=== PATIENT | female | born 1975 | race African-American/Black ===

== ENCOUNTER 2016-10-26 12:34 | Emergency (ER) | payer OTHER ==
[~2016-10-26] VITALS: Ht 167.6 cm; Wt 77.1 kg
[2016-10-26 12:34] VITALS: BP 146/91
[~2016-10-26 12:34] MED LIST: BENADRYL ALLERG25 MG PO; BENADRYL25 MG; BLOOD PRESSURE PILL; CLONIDINE HCL0.2 M2 PO; CLONIDINE0.1 PO; COLACE100 MG; COMPAZINE10 MG PO; FERROUS GLUCON325 M4; IBUPROFEN 200200 M1; IBUPROFEN 200200 M1 PO; IBUPROFEN 400400 M1 PO; IBUPROFEN 400400 M2 PO; IBUPROFEN 600600 M1 PO; NAPROSYN500 MG PO; NOHOMEMEDICATIONS; NORCO 5-325 TA1 EACH PO; NORFLEX100 MG PO; PRENATAL; PROVENTIL HFA6.7 G1 INH; TORADOL 10 MG T10 MG PO; ULTRAM 50MG TAB50 MG PO; VALIUM5 MG PO; ZOFRAN ODT4 MG PO
[2016-10-26] MEDS ORDERED: MOBIC15 MG PO (13:25)
== END 2016-10-26 14:19 | disposition home or self-care (01) ==
LOC: ER 12:34
DX: S60.221A Contusion of right hand, initial encounter (principal); I10 Essential (primary) hypertension; Z88.1 Allergy status to other antibiotic agents; F17.210 Nicotine dependence, cigarettes, uncomplicated; F10.99 Alcohol use, unspecified with unspecified alcohol-induced disorder; W22.8XXA Striking against or struck by other objects, initial encounter; Y93.89 Activity, other specified; Y92.89 Other specified places as the place of occurrence of the external cause; Y99.8 Other external cause status

== ENCOUNTER 2017-03-08 18:17 | Emergency (ER) | payer OTHER ==
[~2017-03-08] VITALS: Ht 172.7 cm; Wt 68.0 kg
[~2017-03-08 18:17] MED LIST changes: +MOBIC15 MG PO
[2017-03-08 18:18] VITALS: BP 145/98
== END 2017-03-08 18:30 | disposition left against medical advice (07) ==
LOC: ER 18:17
DX: Z53.21 Procedure and treatment not carried out due to patient leaving prior to being seen by health care provider (principal)

== ENCOUNTER 2017-03-21 10:11 | Emergency (ER) | payer OTHER ==
[~2017-03-21] VITALS: Ht 162.6 cm; Wt 72.6 kg
[2017-03-21 10:14] VITALS: BP 127/91
[2017-03-21] MEDS ORDERED: PREDNISONE 20 M20 MG PO (10:58)
== END 2017-03-21 11:09 | disposition home or self-care (01) ==
LOC: ER 10:11
DX: T63.481A Toxic effect of venom of other arthropod, accidental (unintentional), initial encounter (principal); I10 Essential (primary) hypertension; G43.909 Migraine, unspecified, not intractable, without status migrainosus; F17.210 Nicotine dependence, cigarettes, uncomplicated; F10.99 Alcohol use, unspecified with unspecified alcohol-induced disorder; Z88.1 Allergy status to other antibiotic agents; Y92.89 Other specified places as the place of occurrence of the external cause

== ENCOUNTER 2017-03-26 15:04 | Emergency (ER) | payer OTHER ==
[~2017-03-26] VITALS: Ht 162.6 cm; Wt 72.6 kg
[~2017-03-26 15:04] MED LIST changes: +PREDNISONE 20 M20 MG PO
[2017-03-26 15:07] VITALS: BP 133/93
== END 2017-03-26 15:53 | disposition home or self-care (01) ==
LOC: ER 15:04
DX: S60.862A Insect bite (nonvenomous) of left wrist, initial encounter (principal); S70.362A Insect bite (nonvenomous), left thigh, initial encounter; I10 Essential (primary) hypertension; G43.909 Migraine, unspecified, not intractable, without status migrainosus; F17.210 Nicotine dependence, cigarettes, uncomplicated; F10.99 Alcohol use, unspecified with unspecified alcohol-induced disorder; Z88.1 Allergy status to other antibiotic agents; W57.XXXA Bitten or stung by nonvenomous insect and other nonvenomous arthropods, initial encounter; Y93.89 Activity, other specified; Y92.89 Other specified places as the place of occurrence of the external cause; Y99.8 Other external cause status

== ENCOUNTER 2017-04-11 09:34 | Emergency (ER) | payer OTHER ==
[~2017-04-11] VITALS: Ht 162.6 cm; Wt 73.5 kg
[2017-04-11] MEDS ORDERED: NORCO 5-325 TA1 EACH PO (10:04)
[2017-04-11 10:32] VITALS: BP 132/68
== END 2017-04-11 10:33 | disposition home or self-care (01) ==
LOC: ER 09:34
DX: S90.32XA Contusion of left foot, initial encounter (principal); I10 Essential (primary) hypertension; G43.909 Migraine, unspecified, not intractable, without status migrainosus; F17.210 Nicotine dependence, cigarettes, uncomplicated; F10.99 Alcohol use, unspecified with unspecified alcohol-induced disorder; Z88.1 Allergy status to other antibiotic agents; W22.8XXA Striking against or struck by other objects, initial encounter; Y93.89 Activity, other specified; Y92.89 Other specified places as the place of occurrence of the external cause; Y99.8 Other external cause status

== ENCOUNTER 2017-05-01 14:40 | Emergency (ER) | payer OTHER ==
[~2017-05-01] VITALS: Ht 162.6 cm; Wt 72.6 kg
--- NOTE | ~2017-05-01 | EKG ---
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 : 1975 Requested By: Marcos Nagel Order Number: [id number] MD: Colton Lombardi Measurements Intervals [place] Rate: 74 P: 77 CA: 209 QRS: 54 QRSD: 103 T: 40 QT: 421 QTc: 467 Interpretive Statements Sinus rhythm Borderline prolonged CA interval Compared to ECG 05/12/2016 17:40:51 No significant changes Electronically Signed On 05-02-2017 6:51:45 CDT by Colton Lombardi [email or web address] <ELECTRONICALLY SIGNED> By: Colton Lombardi MD 05/02/17 0651 1449 1449 Colton Lombardi MD /[facility]
[2017-05-01 14:44] VITALS: BP 146/95
[2017-05-01 16:01] LABS: ABSOLUTE NEUTROPHILS 2.4 thou/uL (1.4-8.2); BASOPHILS 0.3 % (0.0-2.0); EOSINOPHILS 1.5 % (0.0-3.0); HEMATOCRIT 39.7 % (37.0-47.0); HEMOGLOBIN 13.4 gm/dL (12.0-15.0); LYMPHOCYTES 45.9 % (24.0-44.0); MCH 32.2 pg (26.0-34.0); MCHC 33.7 g/dL (28.0-37.0); MCV 95.4 fL (80.0-100.0); MONOCYTES 6.7 % (1.0-8.0); PLATELET COUNT 163 thou/uL (150-400); POLYS 45.6 % (36.0-66.0); RBC 4.16 mil/uL (4.20-5.00); WBC 5.3 thou/uL (4.0-11.0)
[2017-05-01 16:02] LABS: MANUAL DIFF NO
[2017-05-01 16:12] LABS: ANION GAP 11 mmol/L (7-16); BUN 14 mg/dL (7-18); CALCIUM 8.3 mg/dL (8.5-10.1); CHLORIDE 108 mmol/L (98-107); CO2 23 mmol/L (21-32); CREATININE 0.8 mg/dL (0.6-1.0); GLUCOSE 82 mg/dL (74-106); POTASSIUM 3.4 mmol/L (3.5-5.1); SODIUM 142 mmol/L (136-145)
[2017-05-01 16:21] LABS: TROPONIN-I < 0.04 ng/mL (<0.06)
== END 2017-05-01 16:02 | disposition home or self-care (01) ==
LOC: ER 14:40
PROVIDERS: Emergency Medicine
DX: F41.9 Anxiety disorder, unspecified (principal); I10 Essential (primary) hypertension; G43.909 Migraine, unspecified, not intractable, without status migrainosus; F17.210 Nicotine dependence, cigarettes, uncomplicated; F10.99 Alcohol use, unspecified with unspecified alcohol-induced disorder; Z88.1 Allergy status to other antibiotic agents

== ENCOUNTER 2017-06-30 14:57 | Emergency (ER) | payer OTHER ==
[~2017-06-30] VITALS: Ht 162.6 cm; Wt 75.8 kg
[~2017-06-30 14:57] MED LIST changes: +KEFLEX500 M1 PO
[2017-06-30 14:58] VITALS: BP 135/99
[2017-06-30] MEDS ORDERED: TYLENOL EXTRA500 MG PO (15:10)
[2017-06-30] MEDS ORDERED: IBUPROFEN 800800 M1 PO (15:12)
== END 2017-06-30 15:35 | disposition home or self-care (01) ==
LOC: ER 14:57
DX: S90.32XA Contusion of left foot, initial encounter (principal); I10 Essential (primary) hypertension; G43.909 Migraine, unspecified, not intractable, without status migrainosus; F17.210 Nicotine dependence, cigarettes, uncomplicated; Z88.1 Allergy status to other antibiotic agents; W20.8XXA Other cause of strike by thrown, projected or falling object, initial encounter; Y93.89 Activity, other specified; Y92.89 Other specified places as the place of occurrence of the external cause; Y99.0 Civilian activity done for income or pay

== ENCOUNTER 2017-09-10 01:34 | Emergency (ER) | payer OTHER ==
[~2017-09-10] VITALS: Ht 162.6 cm; Wt 71.7 kg
--- NOTE | ~2017-09-10 | EKG ---
[address] [place] [address] ELECTROCARDIOGRAM REPORT Name: JULIO GARCIA 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: CORINE : 1975 Requested By: Gerson Woodard Order Number: [id number] MD: Guille Paige Measurements Intervals [place] Rate: 89 P: 64 LA: 207 QRS: 26 QRSD: 91 T: 30 QT: 386 QTc: 470 Interpretive Statements Sinus rhythm Borderline prolonged [place] interval Compared to ECG 05/01/2017 14:49:03 No significant changes Electronically Signed On 09-10-2017 8:13:47 PATTERN STAMPER by Guille Paige [email or web address] <ELECTRONICALLY SIGNED> By: Guille Paige MD, [facility] 09/10/17 0813 0140 0140 Guille Paige MD, FACC /EPI
[~2017-09-10 01:34] MED LIST changes: +IBUPROFEN 800800 M1 PO; +TYLENOL EXTRA500 MG PO
[2017-09-10] MEDS ORDERED: NORCO 5-325 TA1 EACH PO (01:53)
== END 2017-09-10 03:27 | disposition home or self-care (01) ==
LOC: ER 01:34
DX: R07.89 Other chest pain (principal); R51 Headache; I10 Essential (primary) hypertension; G43.909 Migraine, unspecified, not intractable, without status migrainosus; F17.210 Nicotine dependence, cigarettes, uncomplicated; F10.99 Alcohol use, unspecified with unspecified alcohol-induced disorder; Z88.1 Allergy status to other antibiotic agents

== ENCOUNTER 2017-10-23 15:26 | Emergency (ER) | payer OTHER ==
[~2017-10-23] VITALS: Ht 162.6 cm; Wt 68.5 kg
[2017-10-23 15:35] VITALS: BP 133/95
[2017-10-23] MEDS ORDERED: HYDROCODONE-AP1 EAC6 PO (16:58)
== END 2017-10-23 17:08 | disposition home or self-care (01) ==
LOC: ER 15:26
DX: M77.52 Other enthesopathy of left foot and ankle (principal); I10 Essential (primary) hypertension; G43.909 Migraine, unspecified, not intractable, without status migrainosus; F17.210 Nicotine dependence, cigarettes, uncomplicated; Z88.1 Allergy status to other antibiotic agents

== ENCOUNTER 2017-12-15 10:39 | Emergency (ER) | payer OTHER ==
[~2017-12-15] VITALS: Ht 165.1 cm; Wt 69.4 kg
[~2017-12-15 10:39] MED LIST changes: +HYDROCODONE-AP1 EAC6 PO
[2017-12-15 11:41] VITALS: BP 122/95
[2017-12-15] MEDS ORDERED: MOBIC15 MG PO (11:53)
== END 2017-12-15 12:15 | disposition home or self-care (01) ==
LOC: ER 10:39
DX: M77.52 Other enthesopathy of left foot and ankle (principal); I10 Essential (primary) hypertension; G43.909 Migraine, unspecified, not intractable, without status migrainosus; Z88.1 Allergy status to other antibiotic agents

== ENCOUNTER 2018-01-10 22:15 | Emergency (ER) | payer OTHER ==
[~2018-01-10] VITALS: Ht 162.6 cm; Wt 72.6 kg
[2018-01-10 22:22] VITALS: BP 133/96
[2018-01-10] MEDS ORDERED: TRAMADOL 50 MG50 MG PO (22:57)
[2018-01-10] MEDS ORDERED: NAPROSYN500 MG PO (22:57)
== END 2018-01-10 23:40 | disposition home or self-care (01) ==
LOC: ER 22:15
DX: S83.401A Sprain of unspecified collateral ligament of right knee, initial encounter (principal); I10 Essential (primary) hypertension; G43.909 Migraine, unspecified, not intractable, without status migrainosus; F17.210 Nicotine dependence, cigarettes, uncomplicated; Z88.1 Allergy status to other antibiotic agents; X58.XXXA Exposure to other specified factors, initial encounter; Y93.89 Activity, other specified; Y92.89 Other specified places as the place of occurrence of the external cause; Y99.8 Other external cause status

== ENCOUNTER 2018-06-04 04:36 | Emergency (ER) | payer OTHER ==
[~2018-06-04] VITALS: Ht 162.6 cm; Wt 76.2 kg
--- NOTE | ~2018-06-04 | EKG ---
[place] [address] [facility] [place] [address] ELECTROCARDIOGRAM REPORT Name: JULIO GARCIA [facility] [id number] Admission: 06/04/18 Attend Phys: Discharge: 06/04/18 Date of : 73 Report #: [id number] THIS REPORT FOR: //name// [facility] ED Test Date: 2018-06-04 Test Time: 04:45:07 Pat Name: JULIO GARCIA Department: Room: Gender: F Collision Repairer: SHADIA : 1975 Requested By: Jaya Trotter Order Number: [id number] MD: Colton Lombardi Measurements Intervals [place] Rate: 87 P: 60 ID: 246 QRS: 65 QRSD: 96 T: 38 QT: 401 QTc: 483 Interpretive Statements Sinus rhythm Ventricular premature complex Prolonged ID interval ST elev, probable normal early repol pattern, no ischemia Compared to ECG 09/10/2017 01:40:40 Electronically Signed On 06-04-2018 14:24:37 SPORTS INTERNSHIP by Colton Lombardi [email or web address] <ELECTRONICALLY SIGNED> By: Colton Lombardi MD 06/04/18 1424 4 4 Colton Lombardi MD /[facility]
[~2018-06-04 04:36] MED LIST changes: +TRAMADOL 50 MG50 MG PO
[2018-06-04 04:55] LABS: ABSOLUTE NEUTROPHILS 1.6 thou/uL (1.4-8.2); BASOPHILS 1.1 % (0.0-2.0); EOSINOPHILS 1.2 % (0.0-3.0); HEMATOCRIT 39.3 % (37.0-47.0); HEMOGLOBIN 13.1 gm/dL (12.0-15.0); LYMPHOCYTES 53.6 % (24.0-44.0); MCH 31.5 pg (26.0-34.0); MCHC 33.2 g/dL (28.0-37.0); MCV 94.9 fL (80.0-100.0); MONOCYTES 8.6 % (1.0-8.0); POLYS 35.5 % (36.0-66.0); RBC 4.14 mil/uL (4.20-5.00); RDW 13.1 % (10.5-14.5); WBC 4.4 thou/uL (4.0-11.0)
[2018-06-04 04:57] LABS: PLATELET COUNT 148 thou/uL (150-400)
[2018-06-04 05:05] LABS: ANION GAP 10 mmol/L (7-16); BUN 5 mg/dL (7-18); CALCIUM 8.7 mg/dL (8.5-10.1); CHLORIDE 106 mmol/L (98-107); CO2 26 mmol/L (21-32); CREATININE 0.7 mg/dL (0.6-1.0); GLUCOSE 88 mg/dL (74-106); POTASSIUM 4.4 mmol/L (3.5-5.1); SODIUM 142 mmol/L (136-145)
[2018-06-04 05:14] LABS: TROPONIN-I <0.06 ng/mL (<0.06)
[2018-06-04 06:15] VITALS: BP 106/59
[2018-06-04 06:54] LABS: PLATELET ESTIMATE SLIGHTLY DECREASED
[2018-06-04 06:55] LABS: LARGE PLATELETS FEW
== END 2018-06-04 06:16 | disposition home or self-care (01) ==
LOC: ER 04:36
PROVIDERS: Emergency Medicine
DX: R09.1 Pleurisy (principal); F17.210 Nicotine dependence, cigarettes, uncomplicated; I10 Essential (primary) hypertension; G43.909 Migraine, unspecified, not intractable, without status migrainosus; Z98.890 Other specified postprocedural states; Z88.1 Allergy status to other antibiotic agents

== ENCOUNTER 2018-06-18 16:19 | Emergency (ER) | payer OTHER ==
[~2018-06-18] VITALS: Ht 162.6 cm; Wt 76.2 kg
--- NOTE | ~2018-06-18 | EKG ---
[facility] [place] [address] ELECTROCARDIOGRAM REPORT Name: JULIO GARCIA Room #: 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 : 1975 Requested By: Pierre Ryan Order Number: [id number] MD: Hieu Peralta Measurements Intervals [place] Rate: 83 P: 66 GA: 193 QRS: 49 QRSD: 94 T: 44 QT: 416 QTc: 489 Interpretive Statements Sinus rhythm Multiple ventricular premature complexes Probable left atrial enlargement ST elev, probable normal early repol pattern Borderline prolonged QT interval Compared to ECG 06/04/2018 04:45:07 First degree AV block no longer present Possible ischemia no longer present ST (T wave) deviation still present Electronically Signed On 06-19-2018 9:12:38 SENIOR INSTRUCTOR by Hieu Peralta [email or web address] <ELECTRONICALLY SIGNED> By: Hieu Peralta MD 06/19/18911 1639 Hieu Peralta MD /[facility]
[2018-06-18 16:20] VITALS: BP 140/94
== END 2018-06-18 17:07 | disposition home or self-care (01) ==
LOC: ER 16:19
DX: R06.4 Hyperventilation (principal); F41.0 Panic disorder [episodic paroxysmal anxiety]; I10 Essential (primary) hypertension; G43.909 Migraine, unspecified, not intractable, without status migrainosus; Z98.890 Other specified postprocedural states; F17.210 Nicotine dependence, cigarettes, uncomplicated; Z88.1 Allergy status to other antibiotic agents

== ENCOUNTER 2018-07-04 03:18 | Inpatient (IN) | payer OTHER ==
[~2018-07-04] VITALS: Ht 162.6 cm; Wt 74.8 kg
[2018-07-04] VITALS (8 sets, daily range): BP systolic 141–169; BP diastolic 84–107
[2018-07-04 03:48] LABS: HEMATOCRIT 40.3 % (37.0-47.0); HEMOGLOBIN 13.4 gm/dL (12.0-15.0); MCH 31.4 pg (26.0-34.0); MCHC 33.1 g/dL (28.0-37.0); MCV 94.7 fL (80.0-100.0); RBC 4.26 mil/uL (4.20-5.00); RDW 13.4 % (10.5-14.5); WBC 3.7 thou/uL (4.0-11.0)
[2018-07-04 04:03] LABS: ANION GAP 11 mmol/L (7-16); BUN 7 mg/dL (7-18); CALCIUM 8.7 mg/dL (8.5-10.1); CHLORIDE 100 mmol/L (98-107); CO2 26 mmol/L (21-32); CREATININE 0.7 mg/dL (0.6-1.0); GLUCOSE 97 mg/dL (74-106); POTASSIUM 3.8 mmol/L (3.5-5.1); SODIUM 137 mmol/L (136-145)
[2018-07-04 04:07] LABS: ALBUMIN 3.9 g/dL (3.4-5.0); MAGNESIUM 1.8 mg/dL (1.8-2.4); SGOT 140 U/L (15-37); SGPT 93 U/L (30-65); TOTAL BILIRUBIN 0.7 mg/dL (<0.1-1.0); TOTAL PROTEIN 7.6 g/dL (6.4-8.2); TROPONIN-I <0.06 ng/mL (<0.06)
[2018-07-04 04:18] LABS: PLATELET COUNT 154 thou/uL (150-400)
[2018-07-04 04:21] LABS: ABSOLUTE NEUTROPHILS 1.6 thou/uL (1.4-8.2); ATYPICAL LYMPHS 4 %; LARGE PLATELETS FEW
--- NOTE | 2018-07-04 13:55 | EKG ---
[address] [address] ELECTROCARDIOGRAM REPORT Name: JULIO GARCIA Room #: 212-[facility].#: [id number] Admission: 07/04/18 Attend Phys: Niurka Suresh Discharge: Date of : 73 Report #: [id number] THIS REPORT FOR: //name// [facility] ED Test Date: 2018-07-04 Test Time: 03:32:56 Pat Name: JULIO GARCIA Department: Room: [facility] Gender: F Granulizing Machine Operator: amna : 1975 Requested By: Gunnar Yu Order Number: [id number] MD: Guille Paige Measurements Intervals [place] Rate: 57 P: 25 GA: 189 QRS: 46 QRSD: 95 T: 38 QT: 450 QTc: 439 Interpretive Statements Sinus bradycardia Otherwise normal tracing Compared to ECG 06/18/2018 16:39:19 Ventricular premature complex(es) no longer present Electronically Signed On 07-04-2018 13:55:33 WET MIX OPERATOR by Guille Paige [email or web address] <ELECTRONICALLY SIGNED> By: Guille Paige MD, [facility] 07/04/18 1355 1 1 Guille Paige MD, [facility] /EPI
--- NOTE | 2018-07-04 14:05 | 2DMMODE ---
[facility] [address] [place] [address] 2 D/M-MODE ECHOCARDIOGRAM Name: JOSEVALARIENOE Rodgers Room #: 212-P [facility] IN ..#: [id number] Admission: 07/04/18 Attend Phys: Niurka Charles Discharge: Date of : 73 Date of Service: 07/04/18 1405 Report #: [id number] THIS REPORT FOR: //name// APPROVED REPORT Study performed: 07/04/2018 12:55:13 EXAM: Comprehensive 2D, Doppler, and color-flow Echocardiogram Patient Location: Bedside Room #: [facility] Status: on-call BSA: 1.82 HR: 55 bpm BP: 148/84 mmHg Rhythm: Sinus arrhythmia with PVCs Other Information Study Quality: Good Indications Chest Pain Hx: HTN, tobacco abuse. 2D Dimensions RVDd: 38.77 mm IVSd: 10.46 (7-11mm) LVOT Diam: 23.33 (18-24mm) LVDd: 44.74 mm PWd: 9.15 (7-11mm) Ascending Ao: 32.43 (22-36mm) LVDs: 33.11 (25-40mm) Aortic Root: 37.05 mm Volumes Left Atrial Volume (Systole) Single Plane 4CH: 38.70 mL Single Plane 2CH: 53.16 mL LA ESV Index: 29.00 mL/m2 Aortic Valve AoV Peak Jeremie.: 0.98 m/s AO Peak Gr.: 3.80 mmHg LVOT Max P.32 mmHg LVOT Max V: 0.76 m/s ANDREW Vmax: 3.34 cm2 Mitral Valve E/A Ratio: 1.3 MV Decel. Time: 178.95 ms [facility] [address] [place] [address] 2 D/M-MODE ECHOCARDIOGRAM Name: JOSEVALARIENOE Rodgers Room #: 212-[facility]#: [id number] Admission: 07/04/18 Attend Phys: Niurka Charles Discharge: Date of : 73 Date of Service: 07/04/18 1405 Report #: [id number] MV E Max Jeremie.: 0.67 m/s MV A Jeremie.: 0.53 m/s MV PHT: 51.90 ms IVRT: 124.57 ms Pulmonary Valve PV Peak Jeremie.: 0.65 m/s PV Peak Gr.: 1.69 mmHg Pulmonary Vein P Vein S: 0.71 m/s P Vein A: 0.29 m/s P Vein D: 0.37 m/s P Vein A Dur.: 96.9 msec P Vein S/D Ratio: 1.92 Tricuspid Valve TR Peak Jeremie.: 1.73 m/s RAP Estimate: 5.00 mmHg TR Peak Gr.: 12.03 mmHg PA Pressure: 17.00 mmHg Left Ventricle The left ventricle is normal size. There is normal left ventricular wall thickness. Left ventricular systolic function is normal. LVEF 55%. The left ventricular diastolic function is normal. Right Ventricle The right ventricle is normal size. The right ventricular systolic function is normal. Atria The left atrium size is normal. The right atrium size is normal. Aortic Valve The aortic valve is normal in structure. No aortic regurgitation is present. There is no aortic valvular stenosis. Mitral Valve The mitral valve is normal in structure. Trace mitral regurgitation. Tricuspid Valve The tricuspid valve is normal in structure. Trace tricuspid regurgitation. Estimated PAP is 17mmHg. Pulmonic Valve The pulmonary valve is normal in structure. Mild pulmonic regurgitation. [facility] [address] [place] [address] 2 D/M-MODE ECHOCARDIOGRAM Name: JULIO GARCIA Room #: 212-P [facility]#: [id number] Admission: 07/04/18 Attend Phys: Niurka Charles Discharge: Date of : 73 Date of Service: 07/04/18 1405 Report #: [id number] Great Vessels Aortic root is borderline dilated. The ascending aorta is normal in size. IVC is normal in size and collapses >50% with inspiration. Pericardium There is no pericardial effusion. <Conclusion> 1. Normal echocardiogram with Doppler. EF 55% 2. No pericardial effusion <ELECTRONICALLY SIGNED> By: Guille Paige MD, FACC 07/04/18 1405 1405 04 Guille Paige MD, [facility] /INF
[2018-07-05 03:33] VITALS: BP 148/93
[2018-07-05 08:16] VITALS: BP 142/98
[2018-07-05 12:26] VITALS: BP 136/102
[2018-07-05 17:53] VITALS: BP 151/103
[2018-07-05 20:00] VITALS: BP 145/85
[2018-07-06 03:29] VITALS: BP 140/102
[2018-07-06 05:01] LABS: AMP/METHAMP Negative (Negative); BARBITURATES Negative (Negative); BENZODIAZEPINES Negative (Negative); COCAINE Negative (Negative); METHADONE Negative (Negative); OPIATES Negative (Negative); PCP Negative (Negative)
[2018-07-06 07:48] VITALS: BP 156/109
[2018-07-06 09:24] LABS: HEMATOCRIT 43.1 % (37.0-47.0); HEMOGLOBIN 14.5 gm/dL (12.0-15.0); MCH 32.3 pg (26.0-34.0); MCHC 33.6 g/dL (28.0-37.0); MCV 96.1 fL (80.0-100.0); RBC 4.48 mil/uL (4.20-5.00); RDW 12.9 % (10.5-14.5)
[2018-07-06 09:41] LABS: CALCIUM 8.9 mg/dL (8.5-10.1); CREATININE 0.9 mg/dL (0.6-1.0); POTASSIUM 3.8 mmol/L (3.5-5.1)
--- NOTE | 2018-07-06 10:02 | EXE ---
[facility] [place] [address] STRESS ECHOCARDIOGRAM Name: JULIO GARCIA Room #: 212-P [facility] IN ..#: [id number] Admission: 07/04/18 Attend Phys: Niurka Charles Discharge: Date of : 73 Date of Service: 07/06/18 1002 Report #: [id number] THIS REPORT FOR: //name// APPROVED REPORT Study performed: 07/06/2018 08:33:34 Exam: Stress Echocardiogram Indication: Chest pain Patient Location: Echo lab Stress Nurse: Nicolasa Quintero RN Room #: 212 Status: routine Ht: 5 ft 4 in HR: 83 bpm BP: 140/102 mmHg Medical History Medical History: HTN Cardiac Risk Factors: HTN, Smoking Procedure The patient underwent an Exercise Stress Test using the Joey Protocol. Blood pressure, heart rate, and EKG were monitored. An Echocardiogram was performed by industrial controls technician in four stages in quad fashion. At peak stress, four selected images were obtained and placed side by side with resting images for comparison. Stress Test Details Stress Test: Exercise stress testing was performed using a Joey protocol. HR Resting HR: 88 bpm Max Heart Rate (APMHR): 176 bpm Max HR Achieved: 184 bpm Target HR (85% APMHR): 149 bpm % of APMHR: 104 Recovery HR: 94 bpm HR response to stress: Abnormal HR response to stress/tachy stage 1 BP Resting BP: 140/102 mmHg Max BP: 208/118 mmHg Recovery BP: 154/82 mmHg BP response to stress: Abnormal hypertensive response to stress. [facility] [address] [place] [address] STRESS ECHOCARDIOGRAM Name: JOSEVALARIENOE Rodgers Room #: 212-P [facility] IN ..#: [id number] Admission: 07/04/18 Attend Phys: Niurka Charles Discharge: Date of : 73 Date of Service: 07/06/18 1002 Report #: [id number] ECG Resting ECG: Sinus Rhythm Stress ECG: Sinus Tachycardia Arrhythmia: None Recovery ECG: Sinus Rhythm Clinical Reason for Termination: Chest discomfort, short of breath, very fatigued. Exercise duration: 4 min 43 sec Highest Stage Achieved: Stage 2: 2.5 mph at 12% grade. Exercise capacity: 7.00 METs Stress ECG Conclusion 1. subjectively abnormal with fatigue and dyspnea 2. electrocardiographically negative 3. poor functional capacity Pre-Stress Echo The resting Echocardiogram showed normal left ventricular contractility with an estimated Ejection Fraction of about 50-55%. No significant valvular abnormalities. Post-Stress Echo The stress Echocardiogram showed normal left ventricular contractility with an estimated Ejection Fraction of about 60-65%. Clinical No clinical or ECG evidence for ischemia. Conclusion Clinical Response: Equivocal Exercise Capacity: Below Average Stress ECG Response: Non-ischemic Stress Echo Images: Non-ischemic 1. low risk study Other Information Study Quality: Good <Conclusion> 1. low risk study <ELECTRONICALLY SIGNED> By: Vick Ayers MD 07/06/18 1002 1002 1002 Vick Ayers MD /INF
[2018-07-06 11:27] VITALS: BP 145/108
[2018-07-06] MEDS ORDERED: COZAAR 50 MG TA50 MG PO (12:24)
[2018-07-06 13:12] VITALS: BP 145/108
[2018-07-06 13:13] LABS: CHOLESTEROL 208 mg/dL (<200); HDL CHOLESTEROL 125 mg/dL (>40); LDL CHOLESTEROL 74 mg/dL (<100); TC:HDL 1.7 Ratio (Not establshd); TRIGLYCERIDE 46 mg/dL (<150); VLDL 9 mg/dL (<40)
[2018-07-06 13:42] VITALS: BP 145/108
== END 2018-07-06 13:45 | disposition home or self-care (01) | DRG 313 ==
LOC: ER 03:18 → EROBS 05:27 → 2N 05:27 → ENTRNSPT 07-06 13:30 → 2N 07-06 13:45
PROVIDERS: Emergency Medicine; Internal Medicine; ADMIT Hospitalist
DX: R07.89 Other chest pain (principal); I10 Essential (primary) hypertension; G43.909 Migraine, unspecified, not intractable, without status migrainosus; F17.210 Nicotine dependence, cigarettes, uncomplicated; F41.9 Anxiety disorder, unspecified; Z88.1 Allergy status to other antibiotic agents; Z79.899 Other long term (current) drug therapy; Z98.891 History of uterine scar from previous surgery; Z71.6 Tobacco abuse counseling; Z82.49 Family history of ischemic heart disease and other diseases of the circulatory system
CPT/HCPCS: 10081

== ENCOUNTER 2019-05-01 01:01 | Emergency (ER) | payer OTHER ==
[~2019-05-01] VITALS: Ht 162.6 cm; Wt 72.6 kg
[~2019-05-01 01:01] MED LIST changes: +COZAAR 50 MG TA50 MG PO
[2019-05-01] MEDS ORDERED: MOBIC15 MG PO (01:32)
[2019-05-01] MEDS ORDERED: CYCLOBENZAPRINE5 MG PO (01:32)
[2019-05-01 01:59] VITALS: BP 146/99
== END 2019-05-01 02:01 | disposition home or self-care (01) ==
LOC: ER 01:01
DX: S16.1XXA Strain of muscle, fascia and tendon at neck level, initial encounter (principal); I10 Essential (primary) hypertension; G43.909 Migraine, unspecified, not intractable, without status migrainosus; F41.9 Anxiety disorder, unspecified; F17.210 Nicotine dependence, cigarettes, uncomplicated; Z98.890 Other specified postprocedural states; Z88.1 Allergy status to other antibiotic agents; W21.01XA Struck by football, initial encounter; Y93.89 Activity, other specified; Y92.89 Other specified places as the place of occurrence of the external cause; Y99.8 Other external cause status

== ENCOUNTER 2019-06-12 14:58 | Emergency (ER) | payer OTHER ==
[~2019-06-12] VITALS: Ht 162.6 cm; Wt 72.6 kg
[~2019-06-12 14:58] MED LIST changes: +CYCLOBENZAPRINE5 MG PO
[2019-06-12 15:54] LABS: ABSOLUTE NEUTROPHILS 2.4 thou/uL (1.4-8.2); BASOPHILS 0.9 % (0.0-2.0); EOSINOPHILS 0.6 % (0.0-3.0); HEMATOCRIT 41.5 % (37.0-47.0); HEMOGLOBIN 13.7 gm/dL (12.0-15.0); LYMPHOCYTES 52.9 % (24.0-44.0); MCH 31.2 pg (26.0-34.0); MCHC 33.1 g/dL (28.0-37.0); MCV 94.4 fL (80.0-100.0); MONOCYTES 4.5 % (1.0-8.0); POLYS 41.1 % (36.0-66.0); RDW 13.6 % (10.5-14.5); WBC 5.8 thou/uL (4.0-11.0)
[2019-06-12 16:02] LABS: ANION GAP 9 mmol/L (7-16); BUN 12 mg/dL (7-18); CALCIUM 8.8 mg/dL (8.5-10.1); CHLORIDE 105 mmol/L (98-107); CO2 25 mmol/L (21-32); CREATININE 0.9 mg/dL (0.6-1.0); GLUCOSE 79 mg/dL (74-106); SODIUM 139 mmol/L (136-145)
[2019-06-12 16:12] LABS: TROPONIN-I <0.06 ng/mL (<0.06)
[2019-06-12 16:23] LABS: PLATELET COUNT 245 thou/uL (150-400)
[2019-06-12 17:04] VITALS: BP 126/85
--- NOTE | 2019-06-13 11:16 | EKG ---
[place] [address] [facility] [address] [place] [address] ELECTROCARDIOGRAM REPORT Name: JULIO GARCIA Room #: [facility]P [facility]#: [id number] Admission: 06/12/19 Attend Phys: Discharge: 06/12/19 Date of : 73 Report #: [id number] THIS REPORT FOR: //name// [facility] ED Test Date: 2019-06-12 Test Time: 15:15:29 Pat Name: JULIO GARCIA Department: Room: Gender: F Gas Pipe Layer: [facility] : 1975 Requested By: Jaya Keen Order Number: [id number] MD: Colton Lombardi Measurements Intervals [place] Rate: 79 P: 59 MN: 209 QRS: 21 QRSD: 91 T: 32 QT: 432 QTc: 496 Interpretive Statements Sinus rhythm Multiple ventricular premature complexes Borderline prolonged [place] interval Probable left atrial enlargement Compared to ECG 07/04/2018 03:32:56 Electronically Signed On 06-13-2019 11:16:09 WHEELABRATOR OPERATOR by Colton Lombardi [email or web address] <ELECTRONICALLY SIGNED> By: Colton Lombardi MD 06/13/19 1116 1515 14 Colton Lombardi MD /[facility]
== END 2019-06-12 17:00 | disposition home or self-care (01) ==
LOC: ER 14:58
PROVIDERS: Emergency Medicine
DX: R07.89 Other chest pain (principal); F17.210 Nicotine dependence, cigarettes, uncomplicated; I10 Essential (primary) hypertension; G43.909 Migraine, unspecified, not intractable, without status migrainosus; Z88.1 Allergy status to other antibiotic agents; Z79.899 Other long term (current) drug therapy; Z86.73 Personal history of transient ischemic attack (TIA), and cerebral infarction without residual deficits; Z98.890 Other specified postprocedural states

== ENCOUNTER 2019-07-11 23:40 | Emergency (ER) | payer OTHER ==
[~2019-07-11] VITALS: Ht 162.6 cm; Wt 76.2 kg
[2019-07-12 00:24] LABS: HEMATOCRIT 40.5 % (37.0-47.0); HEMOGLOBIN 13.2 gm/dL (12.0-15.0); MCH 31.4 pg (26.0-34.0); MCHC 32.7 g/dL (28.0-37.0); MCV 95.9 fL (80.0-100.0); PLATELET COUNT 221 thou/uL (150-400); RBC 4.22 mil/uL (4.20-5.00); RDW 13.6 % (10.5-14.5); WBC 5.8 thou/uL (4.0-11.0)
[2019-07-12 00:35] LABS: URINE BILIRUBIN NEGATIVE (Negative); URINE BLOOD 3+ (Negative); URINE CLARITY CLEAR; URINE COLOR YELLOW; URINE GLUCOSE-RANDOM* NEGATIVE (Negative); URINE KETONES NEGATIVE (Negative); URINE NITRITE-REFLEX NEGATIVE (Negative); URINE PROTEIN (DIPSTICK) TRACE (Negative); URINE UROBILINOGEN 0.2 E.U./dl (0.2-1.0)
[2019-07-12 00:37] LABS: APTT 25.2 Seconds (24.5-32.8); PROTIME 10.1 Seconds (9.3-11.4)
[2019-07-12 00:43] LABS: ANION GAP 8 mmol/L (7-16); BUN 10 mg/dL (7-18); CALCIUM 8.2 mg/dL (8.5-10.1); CHLORIDE 108 mmol/L (98-107); CO2 24 mmol/L (21-32); CREATININE 0.6 mg/dL (0.6-1.0); GLUCOSE 82 mg/dL (74-106); LIPASE 250 U/L (73-393); MAGNESIUM 2.3 mg/dL (1.8-2.4); SGOT 41 U/L (15-37); SGPT 21 U/L (30-65); SODIUM 140 mmol/L (136-145); TOTAL BILIRUBIN 0.5 mg/dL (<0.1-1.0); TOTAL PROTEIN 8.1 g/dL (6.4-8.2); TROPONIN-I <0.06 ng/mL (<0.06)
[2019-07-12 00:44] LABS: POTASSIUM 5.5 mmol/L (3.5-5.1)
[2019-07-12 01:02] LABS: AMP/METHAMP Negative (Negative); BARBITURATES Negative (Negative); BENZODIAZEPINES Negative (Negative); COCAINE Negative (Negative); METHADONE Negative (Negative); OPIATES Negative (Negative); PCP Negative (Negative)
[2019-07-12 01:04] LABS: URINE LEUKOCYTES-REFLEX 2+ (Negative)
[2019-07-12 01:06] LABS: CASTS None Seen /LPF (None Seen); CRYSTALS None Seen /LPF (None Seen); MUCUS 0-3 Light strn/LPF (None Seen); SQUAMOUS >10 Many /LPF (0-3); URINE RBC >20 Many /HPF (0-2)
[2019-07-12 01:07] LABS: URINE WBC-REFLEX 6-15 Few /HPF (0-5)
[2019-07-12 01:08] LABS: BACTERIA-REFLEX 1-9 Few /HPF (None Seen)
[2019-07-12 01:16] LABS: ABSOLUTE NEUTROPHILS 1.3 thou/uL (1.4-8.2); ATYPICAL LYMPHS 5 %; LARGE PLATELETS OCCASIONAL
[2019-07-12 02:30] LABS: URINE BILIRUBIN NEGATIVE (Negative); URINE BLOOD NEGATIVE (Negative); URINE CLARITY CLEAR; URINE COLOR YELLOW; URINE GLUCOSE-RANDOM* NEGATIVE (Negative); URINE KETONES NEGATIVE (Negative); URINE LEUKOCYTES-REFLEX NEGATIVE (Negative); URINE NITRITE-REFLEX NEGATIVE (Negative); URINE PROTEIN (DIPSTICK) NEGATIVE (Negative); URINE SPECIFIC GRAVITY >= 1.030 (1.005-1.035); URINE UROBILINOGEN 0.2 E.U./dl (0.2-1.0)
[2019-07-12] MEDS ORDERED: LEVSIN0.125 MG PO (03:46)
[2019-07-12] MEDS ORDERED: PRILOSEC OTC20 MG PO (03:46)
[2019-07-12] MEDS ORDERED: TRAMADOL 50 MG50 MG PO (03:46)
[2019-07-12] MEDS ORDERED: ONDANSETRON ODT8 MG PO (03:46)
[2019-07-12] MEDS ORDERED: TYLENOL WITH CO1 TA1 PO (04:07)
[2019-07-12 04:20] VITALS: BP 143/94
--- NOTE | 2019-07-12 10:21 | EKG ---
[place] [address] [place] [address] ELECTROCARDIOGRAM REPORT Name: JULIO GARCIA [facility] [id number] Admission: 07/11/19 Attend Phys: Discharge: 07/12/19 Date of : 73 Report #: [id number] THIS REPORT FOR: //name// [facility] ED Test Date: 2019-07-11 Test Time: 23:59:18 Pat Name: JULIO GARCIA Department: Room: Gender: F Sewing Techniques Demonstrator: shant : 1975 Requested By: Gunnar Yu Order Number: [id number] MD: Guille Paige Measurements Intervals [place] Rate: 90 P: 36 [place]: 212 QRS: 15 QRSD: 97 T: 28 QT: 413 QTc: 506 Interpretive Statements Sinus rhythm Multiple ventricular premature complexes Prolonged [place] interval Prolonged QT interval Compared to ECG 06/12/2019 15:15:29 Prolonged QT interval now present Electronically Signed On 07-12-2019 10:20:54 DIE CUT OPERATOR by Guille Paige [email or web address] <ELECTRONICALLY SIGNED> By: Guille Paige MD, [facility] 07/12/19 1020 2359 2325 Guille Paige MD, FACC /EPI
== END 2019-07-12 04:26 | disposition home or self-care (01) ==
LOC: ER 23:40
PROVIDERS: Emergency Medicine
DX: R10.30 Lower abdominal pain, unspecified (principal); N94.6 Dysmenorrhea, unspecified; R11.2 Nausea with vomiting, unspecified; R31.9 Hematuria, unspecified; A59.9 Trichomoniasis, unspecified; F17.210 Nicotine dependence, cigarettes, uncomplicated; M79.652 Pain in left thigh; M79.651 Pain in right thigh; I10 Essential (primary) hypertension; F41.9 Anxiety disorder, unspecified; G43.909 Migraine, unspecified, not intractable, without status migrainosus; Z88.0 Allergy status to penicillin; Z88.1 Allergy status to other antibiotic agents

== ENCOUNTER 2019-08-20 08:13 | Emergency (ER) | payer OTHER ==
[~2019-08-20] VITALS: Ht 162.6 cm; Wt 79.4 kg
[~2019-08-20 08:13] MED LIST changes: +LEVSIN0.125 MG PO; +ONDANSETRON ODT8 MG PO; +PRILOSEC OTC20 MG PO; +TYLENOL WITH CO1 TA1 PO
[2019-08-20 09:50] VITALS: BP 142/84
== END 2019-08-20 09:53 | disposition home or self-care (01) ==
LOC: ER 08:13
DX: M79.672 Pain in left foot (principal); I10 Essential (primary) hypertension; G43.909 Migraine, unspecified, not intractable, without status migrainosus; F41.9 Anxiety disorder, unspecified; F17.210 Nicotine dependence, cigarettes, uncomplicated; Z86.73 Personal history of transient ischemic attack (TIA), and cerebral infarction without residual deficits; Z88.1 Allergy status to other antibiotic agents

== ENCOUNTER → 2019-10-10 | Emergency (ER) | payer OTHER ==
[~2019-10-10] VITALS: Ht 162.6 cm; Wt 73.0 kg
[2019-10-10 03:28] LABS: HEMATOCRIT 40.2 % (37.0-47.0); HEMOGLOBIN 13.4 gm/dL (12.0-15.0); MCH 31.4 pg (26.0-34.0); MCHC 33.2 g/dL (28.0-37.0); MCV 94.4 fL (80.0-100.0); PLATELET COUNT 215 thou/uL (150-400); RBC 4.26 mil/uL (4.20-5.00); RDW 13.1 % (10.5-14.5); WBC 4.3 thou/uL (4.0-11.0)
[2019-10-10 03:33] LABS: ANION GAP 14 mmol/L (7-16); BUN 9 mg/dL (7-18); CALCIUM 8.1 mg/dL (8.5-10.1); CHLORIDE 105 mmol/L (98-107); CO2 22 mmol/L (21-32); CREATININE 0.8 mg/dL (0.6-1.0); GLUCOSE 75 mg/dL (74-106); POTASSIUM 3.7 mmol/L (3.5-5.1); SODIUM 141 mmol/L (136-145)
[2019-10-10 03:42] LABS: TROPONIN-I <0.06 ng/mL (<0.06)
[2019-10-10 03:59] LABS: ATYPICAL LYMPHS 3 %
[2019-10-10 04:34] VITALS: BP 142/93
--- NOTE | 2019-10-11 09:32 | EKG ---
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 10/11/19 0930 0122 0122 Guille Paige MD, [facility] /EPI
== END ==
LOC: ER 01:04
PROVIDERS: Emergency Medicine
DX: J02.8 Acute pharyngitis due to other specified organisms (principal); R07.89 Other chest pain; I10 Essential (primary) hypertension; G43.909 Migraine, unspecified, not intractable, without status migrainosus; F17.200 Nicotine dependence, unspecified, uncomplicated

== ENCOUNTER 2019-11-03 13:11 | Emergency (ER) | payer OTHER ==
[~2019-11-03] VITALS: Ht 162.6 cm; Wt 76.2 kg
[2019-11-03 14:07] LABS: URINE BILIRUBIN NEGATIVE (Negative); URINE BLOOD TRACE (Negative); URINE CLARITY CLEAR; URINE COLOR YELLOW; URINE GLUCOSE-RANDOM* NEGATIVE (Negative); URINE KETONES NEGATIVE (Negative); URINE LEUKOCYTES-REFLEX NEGATIVE (Negative); URINE NITRITE-REFLEX NEGATIVE (Negative); URINE PROTEIN (DIPSTICK) NEGATIVE (Negative); URINE SPECIFIC GRAVITY <= 1.005 (1.005-1.035); URINE UROBILINOGEN 0.2 E.U./dl (0.2-1.0)
[2019-11-03 14:20] LABS: HEMATOCRIT 42.5 % (37.0-47.0); HEMOGLOBIN 14.1 gm/dL (12.0-15.0); MCH 31.4 pg (26.0-34.0); MCHC 33.2 g/dL (28.0-37.0); MCV 94.6 fL (80.0-100.0); PLATELET COUNT 201 thou/uL (150-400); WBC 3.5 thou/uL (4.0-11.0)
[2019-11-03 14:32] LABS: CREATININE 0.9 mg/dL (0.6-1.0); POTASSIUM 3.7 mmol/L (3.5-5.1)
[2019-11-03 14:39] LABS: ABSOLUTE NEUTROPHILS 1.2 thou/uL (1.4-8.2); ATYPICAL LYMPHS 1 %
[2019-11-03 14:40] LABS: PLATELET ESTIMATE NORMAL
[2019-11-03 14:42] LABS: ALBUMIN 3.9 g/dL (3.4-5.0); TOTAL BILIRUBIN 0.4 mg/dL (<0.1-1.0); TOTAL PROTEIN 7.8 g/dL (6.4-8.2)
[2019-11-03] MEDS ORDERED: SENNA PLUS TAB1 EACH PO ×2 (16:59→17:04)
[2019-11-03] MEDS ORDERED: MIRALAX17 GM PO ×2 (16:59→17:04)
[2019-11-03 17:18] VITALS: BP 136/86
== END 2019-11-03 17:19 | disposition home or self-care (01) ==
LOC: ER 13:11
PROVIDERS: Physician Assistant
DX: K59.00 Constipation, unspecified (principal); R10.31 Right lower quadrant pain; R11.2 Nausea with vomiting, unspecified; R19.7 Diarrhea, unspecified; I10 Essential (primary) hypertension; G43.909 Migraine, unspecified, not intractable, without status migrainosus; F17.210 Nicotine dependence, cigarettes, uncomplicated; Z86.73 Personal history of transient ischemic attack (TIA), and cerebral infarction without residual deficits; Z88.1 Allergy status to other antibiotic agents

== ENCOUNTER 2019-11-14 21:14 | Emergency (ER) | payer OTHER ==
[~2019-11-14] VITALS: Ht 162.6 cm; Wt 76.2 kg
[~2019-11-14 21:14] MED LIST changes: +MIRALAX17 GM PO; +SENNA PLUS TAB1 EACH PO
[2019-11-14] MEDS ORDERED: ACETAMINOPHEN PO (21:23)
[2019-11-14 21:51] LABS: URINE BILIRUBIN NEGATIVE (Negative); URINE BLOOD NEGATIVE (Negative); URINE CLARITY CLEAR; URINE COLOR YELLOW; URINE GLUCOSE-RANDOM* NEGATIVE (Negative); URINE KETONES NEGATIVE (Negative); URINE LEUKOCYTES-REFLEX TRACE (Negative); URINE NITRITE-REFLEX NEGATIVE (Negative); URINE PROTEIN (DIPSTICK) NEGATIVE (Negative); URINE SPECIFIC GRAVITY >= 1.030 (1.005-1.035); URINE UROBILINOGEN 0.2 E.U./dl (0.2-1.0)
[2019-11-14 22:23] LABS: HEMATOCRIT 37.4 % (37.0-47.0); HEMOGLOBIN 12.5 gm/dL (12.0-15.0); MCH 31.5 pg (26.0-34.0); MCHC 33.4 g/dL (28.0-37.0); MCV 94.3 fL (80.0-100.0); PLATELET COUNT 180 thou/uL (150-400); RBC 3.96 mil/uL (4.20-5.00); RDW 14.6 % (10.5-14.5); WBC 3.8 thou/uL (4.0-11.0)
[2019-11-14 22:43] LABS: CALCIUM 7.9 mg/dL (8.5-10.1); CREATININE 0.8 mg/dL (0.6-1.0); POTASSIUM 3.6 mmol/L (3.5-5.1)
[2019-11-14 23:36] LABS: ALBUMIN 3.4 g/dL (3.4-5.0); DIRECT BILIRUBIN < 0.1 mg/dL (<0.1-0.2); SGOT 25 U/L (15-37); SGPT 21 U/L (30-65); TOTAL BILIRUBIN 0.3 mg/dL (<0.1-1.0); TOTAL PROTEIN 6.8 g/dL (6.4-8.2)
[2019-11-14 23:39] LABS: ABSOLUTE NEUTROPHILS 0.6 thou/uL (1.4-8.2); ATYPICAL LYMPHS 5 %; LARGE PLATELETS OCCASIONAL
[2019-11-15 00:36] VITALS: BP 117/71
== END 2019-11-15 00:51 | disposition home or self-care (01) ==
LOC: ER 21:14
PROVIDERS: Emergency Medicine
DX: R10.31 Right lower quadrant pain (principal); R11.0 Nausea; K59.00 Constipation, unspecified; I10 Essential (primary) hypertension; G43.909 Migraine, unspecified, not intractable, without status migrainosus; F17.210 Nicotine dependence, cigarettes, uncomplicated; Z86.73 Personal history of transient ischemic attack (TIA), and cerebral infarction without residual deficits; Z98.890 Other specified postprocedural states; Z88.1 Allergy status to other antibiotic agents

== ENCOUNTER 2019-11-30 13:35 | Emergency (ER) | payer OTHER ==
[~2019-11-30] VITALS: Ht 162.6 cm; Wt 75.8 kg
[~2019-11-30 13:35] MED LIST changes: +ACETAMINOPHEN PO
[2019-11-30] MEDS ORDERED: IBUPROFEN 800800 M1 PO (14:53)
[2019-11-30 15:36] VITALS: BP 142/81
== END 2019-11-30 15:37 | disposition home or self-care (01) ==
LOC: ER 13:35
DX: S30.0XXA Contusion of lower back and pelvis, initial encounter (principal); I10 Essential (primary) hypertension; G43.909 Migraine, unspecified, not intractable, without status migrainosus; F41.9 Anxiety disorder, unspecified; F17.210 Nicotine dependence, cigarettes, uncomplicated; Z86.73 Personal history of transient ischemic attack (TIA), and cerebral infarction without residual deficits; Z98.890 Other specified postprocedural states; Z88.1 Allergy status to other antibiotic agents; Z91.048 Other nonmedicinal substance allergy status; W10.9XXA Fall (on) (from) unspecified stairs and steps, initial encounter; Y93.89 Activity, other specified; Y92.89 Other specified places as the place of occurrence of the external cause; Y99.8 Other external cause status

== ENCOUNTER 2020-01-02 02:59 | Emergency (ER) | payer OTHER ==
[~2020-01-02] VITALS: Ht 162.6 cm; Wt 75.8 kg
[2020-01-02 04:23] LABS: AMP/METHAMP Negative (Negative); BARBITURATES Negative (Negative); BENZODIAZEPINES Negative (Negative); COCAINE Negative (Negative); METHADONE Negative (Negative); OPIATES Negative (Negative); PCP Negative (Negative)
[2020-01-02] MEDS ORDERED: NAPROSYN500 MG PO (05:35)
[2020-01-02 05:54] VITALS: BP 114/82
--- NOTE | 2020-01-02 10:05 | EKG ---
[facility] [place] [address] ELECTROCARDIOGRAM REPORT Name: JULIO GARCIA Room #: DEP [facility]#: [id number] Admission: 01/02/20 Attend Phys: Discharge: 01/02/20 Date of : 73 Report #: [id number] THIS REPORT FOR: cc: ARISTIDES - Madalyn family physician/PCP ARISTIDES - No family physician/PCP Guille Paige MD [facility] THIS REPORT FOR: //name// [facility] ED Test Date: 2020-01-02 Test Time: 03:07:58 Pat Name: JULIO GARCIA Department: Room: Gender: Pipeline Dispatcher: [place] [id number] : 1975 Requested By: Marcos Nagel Order Number: [id number] MD: Guille Paige Measurements Intervals [place] Rate: 91 P: 44 [place]: 207 QRS: 40 QRSD: 101 T: 50 QT: 418 QTc: 515 Interpretive Statements Sinus rhythm Frequent premature ventricular complexes Prolonged [place] interval Borderline prolonged QT interval Compared to ECG 10/10/2019 01:22:47 No significant change was found Electronically Signed On 01-02-2020 10:04:49 CDT by Guille Paige [email or web address] <ELECTRONICALLY SIGNED> By: Guille Paige MD, FACC 01/02/20 1004 Guille Paige MD, [facility] /EPI
== END 2020-01-02 05:50 | disposition home or self-care (01) ==
LOC: ER 02:59
PROVIDERS: Emergency Medicine
DX: I25.10 Atherosclerotic heart disease of native coronary artery without angina pectoris (principal); I10 Essential (primary) hypertension; F17.210 Nicotine dependence, cigarettes, uncomplicated; Z86.73 Personal history of transient ischemic attack (TIA), and cerebral infarction without residual deficits; Z79.899 Other long term (current) drug therapy; Z88.1 Allergy status to other antibiotic agents; Z91.09 Other allergy status, other than to drugs and biological substances

== ENCOUNTER 2020-03-26 21:26 | Emergency (ER) | payer OTHER ==
[~2020-03-26] VITALS: Ht 162.6 cm; Wt 76.2 kg
[2020-03-26] MEDS ORDERED: ASPERCREME1 EACH (21:38)
[2020-03-26] MEDS ORDERED: ALEVE220 M1 PO (21:38)
[2020-03-26 22:17] LABS: WBC 5.8 thou/uL (4.0-11.0)
[2020-03-26 22:19] LABS: ABSOLUTE NEUTROPHILS 2.4 thou/uL (1.4-8.2); EOSINOPHILS 0.9 % (0.0-3.0); HEMATOCRIT 40.2 % (37.0-47.0); HEMOGLOBIN 13.3 gm/dL (12.0-15.0); MCH 31.1 pg (26.0-34.0); MCV 94.4 fL (80.0-100.0); MONOCYTES 5.2 % (1.0-8.0); PLATELET COUNT 205 thou/uL (150-400); POLYS 40.9 % (36.0-66.0); RBC 4.26 mil/uL (4.20-5.00); RDW 13.3 % (10.5-14.5)
[2020-03-26 22:25] LABS: ANION GAP 12 mmol/L (7-16); BUN 13 mg/dL (7-18); CALCIUM 8.1 mg/dL (8.5-10.1); CHLORIDE 105 mmol/L (98-107); CO2 25 mmol/L (21-32); CREATININE 0.8 mg/dL (0.6-1.0); GLUCOSE 75 mg/dL (74-106); POTASSIUM 3.8 mmol/L (3.5-5.1); SODIUM 142 mmol/L (136-145)
[2020-03-26 22:35] LABS: ALBUMIN 3.8 g/dL (3.4-5.0); MAGNESIUM 2.2 mg/dL (1.8-2.4); SGOT 26 U/L (15-37); SGPT 21 U/L (30-65); TOTAL BILIRUBIN 0.5 mg/dL (0.2-1.0); TOTAL PROTEIN 7.5 g/dL (6.4-8.2); TROPONIN-I <0.06 ng/mL (<0.06)
[2020-03-26 23:25] VITALS: BP 122/74
--- NOTE | 2020-03-27 08:04 | EKG ---
[facility] [place] [address] ELECTROCARDIOGRAM REPORT Name: JULIO GARCIA Room #: DEP [facility]#: [id number] Admission: 03/26/20 Attend Phys: Discharge: 03/26/20 Date of : 73 Report #: [id number] THIS REPORT FOR: cc: ARISTIDES - Madalyn family physician/PCP ARISTIDES - Madalyn family physician/PCP Guille Paige MD [facility] THIS REPORT FOR: //name// [facility] ED Test Date: 2020-03-26 Test Time: 21:28:27 Pat Name: JULIO GARCIA Department: Room: Gender: F Human Relations Teacher: [facility] : 1975 Requested By: Farooq Seo Order Number: [id number] MD: Guille Paige Measurements Intervals [place] Rate: 90 P: 67 [place]: 206 QRS: 25 QRSD: 98 T: 47 QT: 409 QTc: 501 Interpretive Statements Sinus rhythm Ventricular premature complex Borderline prolonged [place] interval Prolonged QT interval Compared to ECG 01/02/2020 03:07:58 No significant changes Electronically Signed On 03-27-2020 8:04:42 CDT by Giulle Paige [email or web address] <ELECTRONICALLY SIGNED> By: Guille Paige MD, [facility] 03/27/2004 27 27 Guille Paige MD, [facility] /EPI
== END 2020-03-26 23:45 | disposition home or self-care (01) ==
LOC: ER 21:26
PROVIDERS: Emergency Medicine
DX: F41.0 Panic disorder [episodic paroxysmal anxiety] (principal); R07.89 Other chest pain; I10 Essential (primary) hypertension; G43.909 Migraine, unspecified, not intractable, without status migrainosus; Z79.899 Other long term (current) drug therapy; Z88.1 Allergy status to other antibiotic agents; Z91.09 Other allergy status, other than to drugs and biological substances

== ENCOUNTER 2020-05-26 13:41 | Emergency (ER) | payer OTHER ==
[~2020-05-26] VITALS: Ht 162.6 cm; Wt 76.2 kg
[~2020-05-26 13:41] MED LIST changes: +ALEVE220 M1 PO; +ASPERCREME1 EACH
[2020-05-26 14:23] VITALS: BP 140/98
== END 2020-05-26 14:23 | disposition home or self-care (01) ==
LOC: ER 13:41
DX: U07.1 COVID-19 (principal); I10 Essential (primary) hypertension; G43.909 Migraine, unspecified, not intractable, without status migrainosus; F17.210 Nicotine dependence, cigarettes, uncomplicated; Z88.1 Allergy status to other antibiotic agents; Z91.09 Other allergy status, other than to drugs and biological substances

== ENCOUNTER 2020-08-03 21:58 | Emergency (ER) | payer OTHER ==
[~2020-08-03] VITALS: Ht 162.6 cm; Wt 76.2 kg
[2020-08-03 22:37] LABS: ABSOLUTE NEUTROPHILS 1.2 thou/uL (1.4-8.2); BASOPHILS 1.1 % (0.0-2.0); EOSINOPHILS 1.9 % (0.0-3.0); HEMATOCRIT 35.5 % (37.0-47.0); HEMOGLOBIN 11.8 gm/dL (12.0-15.0); LYMPHOCYTES 59.7 % (24.0-44.0); MCH 31.5 pg (26.0-34.0); MCHC 33.1 g/dL (28.0-37.0); MCV 95.3 fL (80.0-100.0); MONOCYTES 8.6 % (1.0-8.0); PLATELET COUNT 211 thou/uL (150-400); POLYS 28.7 % (36.0-66.0); RBC 3.73 mil/uL (4.20-5.00); WBC 4.1 thou/uL (4.0-11.0)
[2020-08-03 22:41] LABS: ANION GAP 12 mmol/L (7-16); BUN 13 mg/dL (7-18); CHLORIDE 107 mmol/L (98-107); CO2 23 mmol/L (21-32); CREATININE 0.7 mg/dL (0.6-1.0); GLUCOSE 100 mg/dL (74-106); POTASSIUM 4.4 mmol/L (3.5-5.1); SODIUM 142 mmol/L (136-145)
[2020-08-03 22:50] LABS: ALBUMIN 3.2 g/dL (3.4-5.0); DIRECT BILIRUBIN < 0.1 mg/dL (<0.1-0.2); SGOT 33 U/L (15-37); SGPT 20 U/L (14-59); TOTAL BILIRUBIN 0.3 mg/dL (0.2-1.0); TOTAL PROTEIN 6.7 g/dL (6.4-8.2); TROPONIN-I <0.06 ng/mL (<0.06)
[2020-08-04 01:15] VITALS: BP 122/78
--- NOTE | 2020-08-04 07:18 | EKG ---
[facility] [employer] [place] [address] ELECTROCARDIOGRAM REPORT Name: JULIO GARCIA [facility] [id number] Admission: 08/03/20 Attend Phys: Discharge: 08/04/20 Date of : 73 Report #: [id number] [facility] ED Test Date: 2020-08-03 Test Time: 21:59:37 Pat Name: JULIO GARCIA Department: Room: Gender: F Armoring Machine Operator: JAMES : 1975 Requested By: Lorraine Fung Order Number: [id number] MD: Cehster Castillo Measurements Intervals [place] Rate: 88 P: 60 [place]: 219 QRS: 57 QRSD: 96 T: 49 QT: 406 QTc: 492 Interpretive Statements Sinus rhythm Ventricular bigeminy Prolonged [place] interval Probable left atrial enlargement Borderline prolonged QT interval Compared to ECG 03/26/2020 21:28:27 No significant changes Electronically Signed On 08-04-2020 7:18:29 PARKING ASSISTANT by Chester Castillo [email or web address] <ELECTRONICALLY SIGNED> By: Chester Castillo MD, [facility] 08/04/20 0718 2159 58 Chester Castillo MD, FACC /EPI
== END 2020-08-04 01:21 | disposition home or self-care (01) ==
LOC: ER 21:58
PROVIDERS: Emergency Medicine
DX: R07.89 Other chest pain (principal); M54.2 Cervicalgia; R00.2 Palpitations; I10 Essential (primary) hypertension; G43.909 Migraine, unspecified, not intractable, without status migrainosus; F41.9 Anxiety disorder, unspecified; F17.210 Nicotine dependence, cigarettes, uncomplicated; Z86.73 Personal history of transient ischemic attack (TIA), and cerebral infarction without residual deficits; Z98.890 Other specified postprocedural states; Z79.899 Other long term (current) drug therapy; Z88.1 Allergy status to other antibiotic agents; Z91.048 Other nonmedicinal substance allergy status

== ENCOUNTER 2021-08-02 00:21 | Emergency (ER) | payer BC, OTHER ==
[2021-08-02 00:23] VITALS: BP 101/82
--- NOTE | 2021-08-02 08:15 | EKG ---
[place] [address] [facility] [place] [address] ELECTROCARDIOGRAM REPORT Name: JULIO GARCIA [facility]: [facility] [id number] Admission: 08/02/21 Attend Phys: Discharge: Date of : 73 Report #: [id number] [facility] ED Test Date: 2021-08-02 Test Time: 00:37:37 Pat Name: JULIO GARCIA Department: Room: Gender: F Storage Battery Inspector And Tester: ALIDA : 1975 Requested By: Waldemar Farris Order Number: [id number] MD: Guille Paige Measurements Intervals [place] Rate: 98 P: 70 [place]: 197 QRS: 26 QRSD: 101 T: 59 QT: 424 QTc: 542 Interpretive Statements Sinus rhythm Ventricular bigeminy Borderline prolonged [place] interval Compared to ECG 08/03/2020 21:59:37 No significant change was found Electronically Signed On 08-02-2021 8:15:18 MARINE ELECTRICIAN by Guille Paige [email or web address] <ELECTRONICALLY SIGNED> By: Guille Paige MD, [facility] 08/02/21 0815 0037 0037 Guille Paige MD, FACC /EPI
== END 2021-08-02 00:58 | disposition left against medical advice (07) ==
LOC: ER 00:21
DX: R07.89 Other chest pain (principal); Z53.21 Procedure and treatment not carried out due to patient leaving prior to being seen by health care provider